=== PATIENT | female | born 1970 | race Caucasian/White ===

== ENCOUNTER → 2020-04-16 | Outpatient (CLI) | payer OTHER ==
[~2020-04-16] MED LIST: CELEXA20 MG PO; CIPRO500 MG PO; MOTRIN800 MG PO; MULTIVITAMIN FO1 CAP PO; NORCO 325 MG-51 TAB PO; OMEPRAZOLE DR20 M1 PO; PERCOCET 325 MG1 TA2 PO; PERCOCET 325 MG1 TA5 PO; QUESTRAN LIGHT4 GM PO; SYNTHROID0.1 MG PO; SYNTHROID0.125 MG PO; TAMIFLU75 MG PO; VICODIN ES 7501 TAB PO; ZOFRAN ODT4 MG SL; Zofran4 MG PO
== END | disposition home or self-care (01) ==
LOC: COVID19 11:40
PROVIDERS: ATTEND Family Medicine
DX: Z20.828 Contact with and (suspected) exposure to other viral communicable diseases (principal)

== ENCOUNTER → 2021-09-15 | Outpatient (CLI) | payer OTHER | END | disposition home or self-care (01) | LOC: MAMMO 14:17 | PROVIDERS: ATTEND Internal Medicine Nephrology | DX: Z12.31 Encounter for screening mammogram for malignant neoplasm of breast (principal) ==

== ENCOUNTER → 2022-12-28 | Outpatient (CLI) | payer OTHER | END | disposition home or self-care (01) | LOC: MAMMO 09:21 | PROVIDERS: ATTEND Internal Medicine Nephrology | DX: Z12.31 Encounter for screening mammogram for malignant neoplasm of breast (principal) ==

== ENCOUNTER → 2023-07-19 | Outpatient (CLI) | payer OTHER | END | disposition home or self-care (01) | LOC: RAD 14:56 | PROVIDERS: ATTEND Internal Medicine Nephrology | DX: M25.561 Pain in right knee (principal); M25.562 Pain in left knee; M76.9 Unspecified enthesopathy, lower limb, excluding foot ==

== ENCOUNTER → 2024-03-24 | Outpatient (CLI) | payer OTHER | END | disposition home or self-care (01) | LOC: MAMMO 08:55 | PROVIDERS: ATTEND Internal Medicine | DX: Z12.31 Encounter for screening mammogram for malignant neoplasm of breast (principal) ==

== ENCOUNTER → 2025-04-13 | Outpatient (CLI) | payer OTHER ==
[2025-04-13 11:14] LABS: FREE T4 1.82 ng/dl (0.89-1.76)
== END | disposition home or self-care (01) ==
LOC: US 09:40 → LAB 09:40 → US 10:00
PROVIDERS: ATTEND Internal Medicine Nephrology
DX: M79.604 Pain in right leg (principal); M79.605 Pain in left leg; E78.49 Other hyperlipidemia